=== PATIENT | female | born 2000 | race Caucasian/White ===

== ENCOUNTER 2021-03-04 08:43 | Outpatient (CLI) | payer BC, SELFPAY ==
--- NOTE | ~2021-03-04 | US_ITS ---
EXAMINATION: US right upper quadrant DATE: 03/04/2021 09:20 INDICATION: Elevated liver enzymes TECHNIQUE: Multiple grayscale and Doppler ultrasound images of the abdomen were obtained. COMPARISON: None available FINDINGS: Bowel gas obscures visualization of the pancreas. The visualized portions of the pancreas a re unremarkable. The liver demonstrates increased echogenicity, heterogenous echotexture, and decreas ed through transmission. No surface nodularity. Normal hepatopetal flow in the main portal vein. The gallbladder is normal with no abnormal wall thickening, pericholecystic fluid or stones. The normal c ommon bile duct measures 3 mm. There was no sonographic Mcclain sign. IMPRESSION: 1. Diffuse hepatic steatosis. Reviewed, dictated and finalized at location B.
--- NOTE | ~2021-03-04 | US_ITS ---
EXAMINATION: US thyroid EXAM DATE: 03/04/2021 09:20 INDICATION: Elevated liver enzymes level, dysphagia . TECHNIQUE: Multiple grayscale and Doppler images of the thyroid were obtained (by a technologist who performed the scan) and subsequently reviewed. Individual nodules and recommendations may be reporte d in accordance with TI-RADS system as designated by the 2017 ACR White Paper TI-RADS committee. The re is no prior study for comparison. FINDINGS: Right there are lobe measures 4.0 x 1.5 x 1.3 cm, the left measuring 4.8 x 1.7 x 1.5 cm. Mildly diffu sely heterogeneous thyroid echogenicity without any focal nodule identified. Dimensions are within no rmal size limits. IMPRESSION: 1. Unremarkable thyroid ultrasound exam. Reviewed, dictated and finalized at location A.
== END 2021-03-04 08:44 | disposition home or self-care (01) ==
PROVIDERS: PCP Internal Medicine Endocrinology, Diabetes & Metabolism; Visit Provider Nurse Practitioner Family
DX: R74.8 Abnormal levels of other serum enzymes (principal); K76.0 Fatty (change of) liver, not elsewhere classified
CPT/HCPCS: 76536; 76705

== ENCOUNTER 2021-04-04 07:48 | Outpatient (CLI) | payer BC, SELFPAY ==
--- NOTE | 2021-04-27 14:59 | WPDHOMESLEEP ---
Sleep Study - Home Unattended Date of Study: 04/04/21 Ordering Provider: Priti Guerin MD Interpreting Provider: Priti Guerin MD Home Sleep Study Type: Apnea Link Air Height: 1.65 m Weight: 122.47 kg Body Mass Index: 44.9 Neck Circumference (inches): 16.5 Beryl: 7 Reason for Sleep Study Hypersomnolence Sleep History Karie Maria is a 20 year old female with complaints of excessive daytime sleepiness and daytime fatigue. She rarely Awakens from sleep feeling short of breath. She occasionally awakens at night with heartburn, belching or coughing. She constantly snores loudly. She occasionally has trouble sleeping with a cold. She rarely gasps for breath at night. She does not have breathing problems at night reported to her by others. She constantly sweats excessively at night and frequently notices her heart pounding or beating irregularly at night. She frequently falls asleep during the day, rarely involuntarily and never falls asleep while driving. She occasionally has loss of muscle tone with strong emotion. She constantly has daytime difficulties due to excessive sleepiness. She frequently feels paralyzed on waking or falling asleep. She frequently has vivid dreamlike scenes upon awakening or falling asleep. She is not afraid to go to sleep. She frequently has nightmares. She does not remember dreams. She constantly has racing thoughts. She frequently feels sad, depressed and anxious. She frequently has muscular tension. She frequently notices parts of her body jerking. She occasionally kicks at night, frequently has crawling and aching feelings in her legs. She rarely has any kind of leg pain at night. She frequently has morning jaw pain, occasionally grinds her teeth during sleep. She constantly is bothered by pain during the day. She occasionally is awakened by pain at night. She frequently wakes up feeling stiff in the morning, constantly wakes up with sore achy muscles and pain in the spine. She has fatigue, headaches, dizziness, memory problems, concentration difficulties, and insomnia. She is always tired. Normal bedtime 9 pm, Sometimes it takes hours to fall asleep without medications. She typically wakes 3-5 times at night. She may be hungry during the night and gets a snack. She will try to go back to sleep. She wakes the morning at 6:00 a.m.. She takes naps in the afternoon or evening. A short nap is not refreshing. She is drowsy for 3 hours after waking. She feels better in the morning compared to other times of day. Habits: never smoked tobacco. Caffeine 1-2 sodas a day. Alcohol more than 1 a day. Recreational marijuana use. [facility] Past Medical History Medical History (Updated 04/28/21 @ 16:44 by Priti Guerin MD) Anxiety Depression Headache Hypothyroidism Mixed hyperlipidemia Polycystic ovary syndrome Pre-diabetes Social History Social History (Updated 04/28/21 @ 16:45 by Priti Guerin MD) Smoking status: Never smoker Alcohol intake: current Substance use: current Substance use type: marijuana Medications Home Medications Medication Instructions Recorded Confirmed Type famotidine [Pepcid] 20 mg PO BID #14 tablet 04/05/21 Rx loratadine [Claritin] 10 mg PO DAILY PRN #10 tablet 04/05/21 Rx prednisone 20 mg PO BID 4 Days #8 tablet 04/05/21 Rx Sleep Procedure This test was performed using 4 channel monitoring including respiratory effort channel, snoring channel, heart rate channel, and oxygen saturation channel. This study was scored using [facility] guidelines. Sleep Architecture Not applicable for home sleep test. Respiratory Analysis Recording duration 9 hours 11 minutes. Evaluation duration 8 hours 59 minutes. The apnea-hypopnea index is 14. There are 38 apneas. There were 9 obstructive apneas, 29% of the total, 29 central apneas which is 76% of the total number of apneas. There were 83 hypopneas. No evidence of Alejandro-Baum respira
[2021-04-28 16:40] VITALS: BMI 44.9
== END 2021-04-05 11:57 | disposition home or self-care (01) ==
LOC: ANHCSM 07:51
PROVIDERS: PCP Internal Medicine Endocrinology, Diabetes & Metabolism; Visit Provider Internal Medicine Critical Care Medicine
DX: G47.33 Obstructive sleep apnea (adult) (pediatric) (principal)
CPT/HCPCS: 95806

== ENCOUNTER 2021-04-05 18:06 | Emergency (ER) | payer BC, SELFPAY ==
[2021-04-05 18:16] VITALS: BP 137/91; PULSE 100; RESP 18; TEMP 37.1; O2SAT 98
[2021-04-05 19:28] VITALS: TEMP 36.7
[2021-04-05 19:28] LABS: Glucose Point of Care 101 mg/dl (65-105)
--- NOTE | 2021-04-05 19:34 | ED.GENADULT ---
HPI - General Adult General Chief complaint: Skin/Abscess/Foreign Body Stated complaint: Rash/sent from urgent care Time Seen by Provider: 04/05/21 18:51 Source: patient, family and RN notes reviewed Mode of arrival: ambulatory Limitations: no limitations History of Present Illness HPI narrative: Patient is a 20-year-old female who presents to emergency department for evaluation of rash around the neck patient notes on Sunday she received her second COVID-19 vaccine Sunday she woke with rash about the neck with itching patient denies similar occurrence or any other known allergic exposures or contacts. 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 Patient notes fatigue. Patient denies vomiting diarrhea URI symptoms or other complaints presents in no distress Related Data Allergies Allergy/AdvReac Type Severity Reaction Status Date / Time acetaminophen [From Percocet] Allergy Rash Verified 04/05/21 18:49 oxycodone [From Percocet] Allergy Rash Verified 04/05/21 18:49 levothyroxine AdvReac Nausea and Verified 04/05/21 18:50 Vomiting Review of Systems Review of Systems: All systems reviewed & are unremarkable except as noted in HPI and below PMFSH Past Medical History Medical History Anxiety Depression Social History Social History (Updated 04/05/21 @ 19:48 by Joey Granda PA-C) Smoking status: Never smoker Exam Narrative: GENERAL: Well-appearing, well-nourished, and in no acute distress. HEAD: Normocephalic, atraumatic. EYES: PERRLA and EOMI. ENT: Nares clear, no rhinorrhea or epistaxis. Mucous membranes moist. Oropharynx without tonsillar hypertrophy exudate or other lesions. No angioedema in the oropharynx NECK: Supple. No adenopathy or masses. No stridor CHEST: Clear to auscultation. No respiratory distress. No wheezes rales or rhonchi HEART: Regular rate and rhythm. No murmur heard. EXTREMITIES: Normal range of motion. No edema. SKIN: Warm, dry, patient with macular rash to the left side of the neck a few splotchy areas on the right. Injection site to the left deltoid without erythema or swelling or rash NEURO: No focal deficits. Alert and oriented x3. PSYCH: Normal mood and affect. Course Course Emergency Course: Patient presented with rash which appears to be allergic in nature she is nontoxic-appearing no distress afebrile without URI symptoms or other concerning findings patient will be discharged and managed as a contact dermatitis allergic reaction. She has been given reasons to return and advised to follow with primary care ABCs and vital signs intact and stable Vital Signs Vital signs: Vital Signs Temperature 98.7 F 04/05/21 18:16 Pulse Rate 100 04/05/21 18:16 Respiratory Rate 18 04/05/21 18:16 Blood Pressure 137/91 H 04/05/21 18:16 Pulse Oximetry 98 04/05/21 18:16 Temperature 98.1 F 04/05/21 19:28 Pulse Rate 100 04/05/21 18:16 Respiratory Rate 18 04/05/21 18:16 Blood Pressure 137/91 H 04/05/21 18:16 Pulse Oximetry 98 04/05/21 18:16 Medical Decision Making MDM Narrative Medical decision making narrative: Patient presented with rash nonspecific will be discharged with outpatient follow-up provided with reasons to return she will be managed with antihistamines and steroids in the interim no concerning findings otherwise on evaluation Vital Signs Vital Signs: Vital Signs Temperature 98.7 F 04/05/21 18:16 Pulse Rate 100 04/05/21 18:16 Respiratory Rate 18 04/05/21 18:16 Blood Pressure 137/91 H 04/05/21 18:16 Pulse Oximetry 98 04/05/21 18:16 Temperature 98.1 F 04/05/21 19:28 Pulse Rate 100 04/05/21 18:16 Respiratory Rate 18 04/05/21 18:16 Blood Pressure 137/91 H 04/05/21 18:16 Pulse Oximetry 98 04/05/21 18:16 Lab Data Labs: Lab Results 04/05/21 Range/Units
[2021-04-05] MEDS: hydrOXYzine HCL 25 MG TABLET PO (20:00)
[2021-04-05] MEDS: FAMOTIDINE 20 MG TABLET PO (20:00)
== END 2021-04-05 20:16 | disposition home or self-care (01) ==
PROVIDERS: Emergency Provider Emergency Medicine; PCP Physician Assistant
DX: R21 Rash and other nonspecific skin eruption (principal)
CPT/HCPCS: 82948; 99283; A9270

== ENCOUNTER 2021-04-27 12:08 | Outpatient (CLI) | payer BC, SELFPAY ==
--- NOTE | ~2021-04-27 | MR_ITS ---
EXAMINATION: MR brain/brain stem wo con EXAM DATE: 04/27/2021 14:43 INDICATION: Seizure disorder. TECHNIQUE: Magnetic resonance imaging (MRI) of the brain/brain stem obtained without contrast. Lali al T1, axial diffusion, gradient echo (T2*), T1, T2, FLAIR sequences obtained. Seizure protocol was utilized including high-resolution coronal images through the hippocampi. There are no prior studies for comparison. FINDINGS: The hippocampi are symmetric and are without signal abnormality identified. There are no g ray matter heterotopias identified or evidence of cortical dysplasia. There are no areas of restricte d diffusion to suggest acute infarction. There is no acute hemorrhage seen on the T2*, a hemosiderin sensitive sequence. No intraparenchymal brain mass. The ventricles are normal in size. There are n o extra-axial collections. Flow voids are seen in the cerebral arteries on the T2-weighted sequences consistent with their expected patency. The orbits are unremarkable. Soft tissue is unremarkable. IMPRESSION: Unremarkable brain MRI examination. Reviewed, dictated and finalized at location B.
== END 2021-04-27 12:09 | disposition home or self-care (01) ==
PROVIDERS: PCP Physician Assistant; Visit Provider Physician Assistant
DX: G40.909 Epilepsy, unspecified, not intractable, without status epilepticus (principal)
CPT/HCPCS: 70551

== ENCOUNTER 2021-11-22 14:23 | Outpatient (CLI) | payer BC, SELFPAY ==
--- NOTE | ~2021-11-22 | XR_ITS ---
EXAM: XR hip RT min 2V HISTORY: CHRONIC RIGHT HIP PAIN COMPARISON: None available FINDINGS: Normal mineralization. No fracture or dislocation. No lytic or blastic lesion. Joint space s maintained. No erosion or periosteal change. Soft tissues within normal limits. IMPRESSION: Normal right hip radiograph findings. Reviewed, dictated and finalized at location K.
--- NOTE | ~2021-11-22 | XR_ITS ---
EXAM: XR sacroiliac joints min 3V HISTORY: CHRONIC SI PAIN COMPARISON: None available FINDINGS: Normal mineralization. No fracture or dislocation. No lytic or blastic lesion. Narrowing a nd subchondral sclerosis in the inferior portion of the right SI joint. No erosion or periosteal mcgill ge. Soft tissues within normal limits. IMPRESSION: Right sacroiliitis. Reviewed, dictated and finalized at location K. IMPRESSION: Right sacroiliitis.
--- NOTE | ~2021-11-22 | MR_ITS ---
EXAMINATION: MR hip RT wo con DATE: 11/22/2021 16:17 INDICATION: Chronic right hip pain. TECHNIQUE: Magnetic resonance imaging (MRI) of the right hip was performed without intravenous contra st. Sequences included axial and coronal PD-weighted FS FSE and axial T1-weighted FSE of the pelvis. Sequences of the hip included 2D FIESTA, T1-weighted fast GRE, and axial, coronal, and sagittal PD-we ighted FS FSE. COMPARISON: Right hip radiographs 11/22/2021 FINDINGS: Bones/cartilage: Bone alignment is normal. No fracture. The femoral head/neck morphologies are normal. The right hip j oint cartilage is normal. Labrum: The right acetabular labrum is normal. Fluid: There is no hip joint effusion. There is mild bilateral trochanteric bursitis. Soft tissues: There is mild tendinopathy of the hamstring origins. The iliopsoas tendons are normal. The gluteus mi nimus and gluteus medius tendons are normal. The musculature is normal. IMPRESSION: 1. Mild bilateral trochanteric bursitis. Reviewed, dictated and finalized at location A.
--- NOTE | ~2021-11-22 | XR_ITS ---
EXAM: XR lumbar spine min 4V HISTORY: WEAKNESS OF JESSI;CHRONIC JESSI LBP W/O SCIATICA COMPARISON: None available FINDINGS: There are 6 nonrib-bearing lumbar-type vertebral bodies. Normal vertebral body heights. Mi ld disc space narrowing at L6-S1. Mild facet narrowing and sclerosis on the left at L5-6. Mild facet sclerosis at L5-6 and L6-S1 on the right. IMPRESSION: 6 lumbar-type vertebral bodies. Mild degenerative disease at L6-S1. Lower lumbar facet arthropathy. Reviewed, dictated and finalized at location K. IMPRESSION: 6 lumbar-type vertebral bodies. Mild degenerative disease at L6-S1. Lower lumba r facet arthropathy.
--- NOTE | ~2021-11-22 | US_ITS ---
US breast LT limited DATE: 11/22/2021 15:05 INDICATION: Left breast contusion, lump; patient noticed the lump is diminishing in size TECHNIQUE: High-resolution limited left breast ultrasound examination at the area of clinical complai nt of lump at 6:00 5 cm from the nipple, in the area of a bruise. Within the subcutaneous adipose tissue is an elongated parallel circumscribed lowly sonolucent area w ithout an up to 1 mm in depth and 12 mm width. This is likely a small hematoma or seroma. No suspicious mass or shadowing is noted. COMPARISON: None FINDINGS: High-resolution limited left breast ultrasound examination at the area of clinical complain t of lump at 6:00 5 cm from the nipple, in the area of a bruise, within the subcutaneous adipose tiss ue, is an elongated parallel circumscribed lowly sonolucent area without an up to 1 mm in depth and 1 2 mm width. This is likely a small hematoma or seroma. No suspicious mass or shadowing is noted. IMPRESSION: BI-RADS Category 2: Benign Reviewed, dictated and finalized at Location A. Reviewed, dictated and finalized at location A. IMPRESSION: BI-RADS Category 2: Benign
== END 2021-11-22 14:24 | disposition home or self-care (01) ==
PROVIDERS: PCP Internal Medicine Endocrinology, Diabetes & Metabolism; Referring Provider Physician Assistant; Visit Provider Physician Assistant
DX: G89.29 Other chronic pain (principal); M70.61 Trochanteric bursitis, right hip; M53.3 Sacrococcygeal disorders, not elsewhere classified; M51.37 Other intervertebral disc degeneration, lumbosacral region; S20.02XA Contusion of left breast, initial encounter; X58.XXXA Exposure to other specified factors, initial encounter; R29.898 Other symptoms and signs involving the musculoskeletal system; M54.50 Low back pain, unspecified; M25.561 Pain in right knee
CPT/HCPCS: 72110; 72202; 73502; 73721; 76642

== ENCOUNTER 2022-01-07 09:08 | Outpatient (CLI) | payer BC, SELFPAY ==
--- NOTE | ~2022-01-07 | MR_ITS ---
EXAMINATION: MR sacroiliac jts wo/w con DATE: 01/07/2022 10:42 INDICATION: Sacroiliitis. Sacroiliac joint pain. TECHNIQUE: Magnetic resonance imaging (MRI) of the sacroiliac joints was performed without and with 2 0 mL MultiHance intravenous contrast. COMPARISON: Right hip MRI 11/22/2021, sacroiliac joint radiographs 11/11/2021 FINDINGS: Bone alignment is normal. No fracture. There is osteoarthritis of the sacroiliac joints wit h osteophytes and right-sided joint space narrowing. No erosions. No evidence of inflammatory arthrop athy. There is a 4.2 cm cyst in right ovary, likely a follicular cyst. IMPRESSION: 1. Moderate osteoarthritis of right sacroiliac joint and mild osteoarthritis of left sacroiliac joint . No evidence of inflammatory arthropathy. Reviewed, dictated and finalized at location A. IMPRESSION: 1. Moderate osteoarthritis of right sacroiliac joint and mild osteoarthritis of left sacroiliac joint. No evidence of inflammatory arthropathy.
[2022-01-07 09:57] LABS: Estimated Glomerular Filt Rate > 60
== END 2022-01-07 09:09 | disposition home or self-care (01) ==
LOC: ANHIMG 09:10
PROVIDERS: PCP Internal Medicine Endocrinology, Diabetes & Metabolism; Visit Provider Physician Assistant
DX: M46.1 Sacroiliitis, not elsewhere classified (principal); M85.88 Other specified disorders of bone density and structure, other site
CPT/HCPCS: 72197; A9577

== ENCOUNTER → 2022-02-23 13:31 | Outpatient (CLI) | payer BC, SELFPAY ==
--- NOTE | ~2022-02-23 | US_ITS ---
EXAMINATION: US transvaginal DATE: 02/23/2022 13:57 INDICATION: Right ovarian cyst. Comparison:MRI dated 01/08/20202015 TECHNIQUE: Multiple transabdominal and endovaginal sonographic images of the pelvis performed. FINDINGS: The uterus measures 7.2 x 3.6 x 3.9 cm. The endometrial complex measures 4 mm. The right ovary measures 2.7 x 2 x 1.9 cm and the left ovary measures 2.9 x 2 x 2.6 cm. There is a le ft ovarian cyst measuring 2.1 cm. There are small follicles in each ovary. Normal doppler signal in b oth ovaries. There is no free fluid in the pelvis. There are no abnormal masses seen on either side. IMPRESSION: 1. Left ovarian cyst measuring 2.1 cm. Reviewed, dictated and finalized at location A.
== END ==
PROVIDERS: PCP Physician Assistant; Visit Provider Obstetrics & Gynecology Gynecology
DX: N83.202 Unspecified ovarian cyst, left side (principal)
CPT/HCPCS: 76830

== ENCOUNTER 2022-10-20 12:52 | Outpatient (CLI) | payer BC, SELFPAY ==
--- NOTE | ~2022-10-20 | XR_ITS ---
Clinical Indication: Chest pain PA and lateral views of the chest: Comparison: None Findings: The lungs are clear, without evidence of focal consolidation or pleural effusion. Cardiome diastinal silhouette is within normal limits. Bones and soft tissues are unremarkable. Impression: Normal chest. Reviewed, dictated and finalized at [facility]. 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
== END 2022-10-20 12:53 | disposition home or self-care (01) ==
PROVIDERS: PCP Nurse Practitioner Family; Visit Provider Nurse Practitioner Family
DX: R07.89 Other chest pain (principal); G89.29 Other chronic pain
CPT/HCPCS: 71046

== ENCOUNTER 2022-10-29 13:39 | Emergency (ER) | payer BC, SELFPAY ==
--- NOTE | ~2022-10-29 | XR_ITS ---
XR ankle LT min 3V 10/29/2022 14:06 INDICATION: Left ankle pain after recent fall PROCEDURE: 4 views left ankle COMPARISON: No prior studies for comparison. FINDINGS: Fracture, dislocation or subluxation is not identified. There is mild lateral soft tissue s welling. No foreign bodies are identified. IMPRESSION: 1: NO ACUTE BONE OR JOINT ABNORMALITY IDENTIFIED. Reviewed, dictated and finalized at location A.
[2022-10-29 14:00] VITALS: BP 138/94; PULSE 126; RESP 16; TEMP 36.1; O2SAT 98
--- NOTE | 2022-10-29 14:24 | ED.LOWEXIN ---
HPI - Extremity Injury (Lower) General Chief Complaint: Extremity Injury, Lower Stated Complaint: Left Foot Pain Time Seen by Provider: 10/29/22 14:25 Source: patient, RN notes reviewed and old records reviewed Mode of arrival: ambulatory Limitations: no limitations History of Present Illness HPI Narrative: 22-year-old female presents to [facility] with complaints of left lateral ankle pain since Sunday. Patient states that she was walking when her ankle rolled in words and she landed on it. Was evaluated at a local ER. Patient reports that it is not any better. Positive pedal pulse. Sensation intact. Related Data Home Medications Medication Instructions Recorded Confirmed aripiprazole 5 mg tablet 5 mg PO DIRECTED 10/29/22 10/29/22 clomipramine 75 mg capsule 150 mg PO QHS 10/29/22 10/29/22 cyanocobalamin (vitamin B-12) 1,000 mcg IM DIRECTED 10/29/22 10/29/22 1,000 mcg/mL injection solution dextroamphetamine-amphetamine ER 30 mg PO DAILY 10/29/22 10/29/22 30 mg 24hr capsule,extend release dicyclomine 20 mg tablet 20 mg PO BID PRN Pain 10/29/22 10/29/22 drospirenone 3 mg-ethinyl 1 tablet PO DAILY 10/29/22 10/29/22 estradiol 0.03 mg tablet ergocalciferol (vitamin D2) 1,250 1,250 mcg PO DIRECTED 10/29/22 10/29/22 mcg (50,000 unit) capsule ferrous sulfate 325 mg (65 mg 325 mg PO DAILY 10/29/22 10/29/22 iron) tablet fluoxetine 40 mg capsule 40 mg PO DAILY 10/29/22 10/29/22 gabapentin 300 mg capsule 300 mg PO DIRECTED 10/29/22 10/29/22 ibuprofen 800 mg tablet 800 mg PO DIRECTED 10/29/22 10/29/22 metformin 1,000 mg tablet 500 mg PO DIRECTED 10/29/22 10/29/22 metoprolol tartrate 50 mg tablet 50 mg PO DIRECTED 10/29/22 10/29/22 rosuvastatin 10 mg tablet 10 mg PO DAILY 10/29/22 10/29/22 trazodone 100 mg tablet 100 mg PO DIRECTED 10/29/22 10/29/22 Allergies Allergy/AdvReac Type Severity Reaction Status Date / Time acetaminophen [From Percocet] Allergy Rash Verified 10/29/22 13:47 Latex, Natural Rubber Allergy Rash Verified 10/29/22 14:16 oxycodone [From Percocet] Allergy Rash Verified 10/29/22 13:47 Review of Systems Review of Systems: All systems reviewed & are unremarkable except as noted in HPI and below Constitutional: Constitutional: Reports no additional constitutional complaints Eyes: Eyes: Reports no additional eye complaints ENT: Reports system reviewed and no additional complaints, except as documented Cardiovascular: Cardiovascular: Reports no additional cardiovascular complaints, Denies chest pain and Denies dyspnea Respiratory: Respiratory: Reports no additional respiratory complaints, Denies chest congestion, Denies cough and Denies dyspnea Gastrointestinal: Gastrointestinal: Reports no additional gastrointestinal complaints, Denies abdominal pain, Denies nausea and Denies vomiting Musculoskeletal: Musculoskeletal: Reports as per HPI and Reports arthralgias (Left lateral ankle) Integumentary/Breasts: Skin/Breast: Reports system reviewed and no additional complaints, except as docu Neurologic: Reports system reviewed and no additional complaints, except as documented Psychiatric: Psychiatric: Reports no additional psychiatric complaints Allergic/Immunologic: Allergic/Immunologic: Reports no additional allergic/immunologic complaints [facility] Past Medical History Medical History Anxiety Depression Headache Hypothyroidism Mixed hyperlipidemia Polycystic ovary syndrome Pre-diabetes Social History Social History Smoking status: Never smoker Alcohol intake: current Substance use: current Substance use type: marijuana Comments At the time of my signature, I reviewed and agree with the nursing past medical, surgical, social, and family history. There is no relevant family history pertinent to the patient complaint. Exam Const: General: coop
== END 2022-10-29 14:40 | disposition home or self-care (01) ==
PROVIDERS: Emergency Provider Nurse Practitioner; PCP Nurse Practitioner Family
DX: S93.402A Sprain of unspecified ligament of left ankle, initial encounter (principal); F41.9 Anxiety disorder, unspecified; F32.A Depression, unspecified; E03.9 Hypothyroidism, unspecified; E78.5 Hyperlipidemia, unspecified; Z79.01 Long term (current) use of anticoagulants; Z79.84 Long term (current) use of oral hypoglycemic drugs; X50.0XXA Overexertion from strenuous movement or load, initial encounter
CPT/HCPCS: 73610; 99213; G0463

== ENCOUNTER 2023-01-19 14:49 | Outpatient (CLI) | payer BC, SELFPAY ==
--- NOTE | ~2023-01-19 | US_ITS ---
EXAMINATION: US transvaginal DATE: 01/19/2023 15:27 INDICATION: Pelvic pain TECHNIQUE: Multiple endovaginal sonographic images of the pelvis were obtained. COMPARISON: 02/23/2022 FINDINGS: The uterus measures 7.8 x 3.7 x 4.2 cm. The endometrial complex measures 9 mm. The right ov estiven measures 2.6 x 1.6 x 2.1 cm. The left ovary measures 5.3 x 3.5 x 3.3 cm and contains a 2.7 cm cys t. There is normal vascular flow in the ovaries. There is no free fluid in the pelvis. IMPRESSION: 1. No sonographic correlate for the patient's symptoms. Reviewed, dictated and finalized at location F.
== END 2023-01-19 14:50 ==
PROVIDERS: PCP Nurse Practitioner; Visit Provider Nurse Practitioner
DX: R10.2 Pelvic and perineal pain (principal)
CPT/HCPCS: 76830

== ENCOUNTER 2023-11-14 14:57 | Outpatient (CLI) | payer BC, SELFPAY ==
--- NOTE | ~2023-11-14 | XR_ITS ---
XR chest 2V DATE: 11/14/2023 15:12 INDICATION: Restless legs TECHNIQUE: PA and lateral views COMPARISON: None FINDINGS: Normal heart size. No hilar or mediastinal enlargement. No pulmonary infiltrate or consolid ation, pleural effusion or pulmonary vascular congestion or pneumothorax. Included skeletal structure s are unremarkable. IMPRESSION: Negative Reviewed, dictated and finalized at location B. IMPRESSION: Negative
== END 2023-11-14 14:58 | disposition home or self-care (01) ==
PROVIDERS: PCP Nurse Practitioner; Visit Provider Internal Medicine Pulmonary Disease
DX: G47.33 Obstructive sleep apnea (adult) (pediatric) (principal); G25.81 Restless legs syndrome; F45.8 Other somatoform disorders; F41.9 Anxiety disorder, unspecified; R53.83 Other fatigue; R06.02 Shortness of breath; F51.04 Psychophysiologic insomnia
CPT/HCPCS: 71046

== ENCOUNTER 2024-01-28 18:24 | Emergency (ER) | payer BC, SELFPAY ==
--- NOTE | ~2024-01-28 | XR_ITS ---
EXAM: XR ankle RT min 3V DATE: 01/28/2024 20:06 HISTORY: pain; injury . COMPARISON: None available. FINDINGS: Normal mineralization. No fracture or dislocation. No lytic or blastic lesion. Joint space s are maintained. No erosion or periosteal change. Lateral and anterior ankle soft tissue swelling. IMPRESSION: No acute osseous finding in the right ankle. Reviewed, dictated and finalized at location K.
[2024-01-28 18:32] VITALS: BP 128/75; PULSE 94; RESP 18; TEMP 36.6; O2SAT 98
--- NOTE | 2024-01-28 19:39 | ED.GENADULT ---
HPI - General Adult General Chief complaint: Extremity Injury, Lower Stated complaint: right ankle injury Time Seen by Provider: 01/28/24 19:40 Source: patient, RN notes reviewed and old records reviewed Mode of arrival: ambulatory Limitations: no limitations History of Present Illness HPI narrative: 23-year-old female to [facility] for complaint of right ankle and right foot pain after falling down 3 steps at home. Patient denies hitting head during full. Patient reports prior sprains and strains to same joint. Patient denies numbness, tingling, pain radiating into right lower extremity patient has not attempted to treat at home with [id number] medications. Patient in no acute distress. Related Data Home Medications Medication Instructions Recorded Confirmed aripiprazole 5 mg tablet 5 mg PO DIRECTED 10/29/22 10/29/22 clomipramine 75 mg capsule 150 mg PO QHS 10/29/22 10/29/22 cyanocobalamin (vitamin B-12) 1,000 mcg IM DIRECTED 10/29/22 10/29/22 1,000 mcg/mL injection solution dextroamphetamine-amphetamine ER 30 mg PO DAILY 10/29/22 10/29/22 30 mg 24hr capsule,extend release dicyclomine 20 mg tablet 20 mg PO BID PRN Pain 10/29/22 10/29/22 drospirenone 3 mg-ethinyl 1 tablet PO DAILY 10/29/22 10/29/22 estradiol 0.03 mg tablet ergocalciferol (vitamin D2) 1,250 1,250 mcg PO DIRECTED 10/29/22 10/29/22 mcg (50,000 unit) capsule ferrous sulfate 325 mg (65 mg 325 mg PO DAILY 10/29/22 10/29/22 iron) tablet fluoxetine 40 mg capsule 40 mg PO DAILY 10/29/22 10/29/22 gabapentin 300 mg capsule 300 mg PO DIRECTED 10/29/22 10/29/22 ibuprofen 800 mg tablet 800 mg PO DIRECTED 10/29/22 10/29/22 metformin 1,000 mg tablet 500 mg PO DIRECTED 10/29/22 10/29/22 metoprolol tartrate 50 mg tablet 50 mg PO DIRECTED 10/29/22 10/29/22 rosuvastatin 10 mg tablet 10 mg PO DAILY 10/29/22 10/29/22 trazodone 100 mg tablet 100 mg PO DIRECTED 10/29/22 10/29/22 Allergies Allergy/AdvReac Type Severity Reaction Status Date / Time acetaminophen [From Percocet] Allergy Rash Verified 01/28/24 20:03 Latex, Natural Rubber Allergy Rash Verified 01/28/24 20:03 oxycodone [From Percocet] Allergy Rash Verified 01/28/24 20:03 Review of Systems Review of Systems: All systems reviewed & are unremarkable except as noted in HPI and below Constitutional: Constitutional: Reports no additional constitutional complaints Eyes: Eyes: Reports no additional eye complaints ENT: Reports system reviewed and no additional complaints, except as documented Cardiovascular: Cardiovascular: Reports no additional cardiovascular complaints, Denies chest pain and Denies dyspnea Respiratory: Respiratory: Reports no additional respiratory complaints, Denies cough and Denies dyspnea Musculoskeletal: Musculoskeletal: Reports as per HPI, Reports arthralgias ( right ankle) and Reports joint swelling ( right ankle) Neurologic: Reports system reviewed and no additional complaints, except as documented Psychiatric: Psychiatric: Reports no additional psychiatric complaints PMFSH Past Medical History Medical History Anxiety Depression Headache Hypothyroidism Mixed hyperlipidemia Polycystic ovary syndrome Pre-diabetes Social History Social History Smoking status: Never smoker Alcohol intake: current Substance use: current Substance use type: marijuana Comments At the time of my signature, I reviewed and agree with the nursing past medical, surgical, social, and family history. There is no relevant family history pertinent to the patient complaint. Exam Const: General: cooperative, healthy appearing, comfortable, no acute distress, alert and well nourished Nutritional Appearance: well nourished Orientation/consciousness: patient oriented x3 Limitations: no limitations HENMT: Head: normal to inspection Ears:
== END 2024-01-28 20:45 | disposition home or self-care (01) ==
PROVIDERS: Emergency Provider Nurse Practitioner Family
DX: S93.401A Sprain of unspecified ligament of right ankle, initial encounter (principal); S96.911A Strain of unspecified muscle and tendon at ankle and foot level, right foot, initial encounter; W10.9XXA Fall (on) (from) unspecified stairs and steps, initial encounter
CPT/HCPCS: 73610; 99213; G0463

== ENCOUNTER 2024-04-06 21:11 | Emergency (ER) | payer BC, SELFPAY ==
--- NOTE | ~2024-04-06 | XR_ITS ---
AP view of the pelvis and AP and lateral views of the right hip Clinical history: Pain Findings: No acute fracture or dislocation is seen. Osseous alignment is anatomic. Bilateral hip and SI joint spaces are preserved. Soft tissues are unremarkable. Impression: No significant abnormality is seen. Reviewed, dictated and finalized at [facility]. Impression: No significant abnormality is seen.
--- NOTE | ~2024-04-06 | XR_ITS ---
Lumbosacral Spine: AP and lateral views Clinical History: Pain Findings: The normal lordotic curve is maintained. The vertebral bodies and posterior elements are i ntact. The intervertebral disc spaces are preserved. The sacroiliac joints are normally outlined. Impression: No significant abnormality. Reviewed, dictated and finalized at [facility] [place]. Impression: No significant abnormality.
--- NOTE | 2024-04-06 22:12 | ED.LOWEXIN ---
HPI - Extremity Injury (Lower) General Chief Complaint: Extremity Injury, Lower Stated Complaint: R hip pain Time Seen by Provider: 04/06/24 21:54 Source: patient Mode of arrival: ambulatory (with cane) Limitations: no limitations History of Present Illness HPI Narrative: This is a 23 year old female that presents to the ER for right sided hip/low back pain. Reports history of chronic hip pain. Reports they has a known Labrum tear. Was unable to have surgery this summer as their BMI is too high. Reports they was moving apartments this week and the pain is worse than usual. Denies decreased ROM or numbness. Related Data Home Medications Medication Instructions Recorded Confirmed aripiprazole 5 mg tablet 5 mg PO DIRECTED 10/29/22 10/29/22 clomipramine 75 mg capsule 150 mg PO QHS 10/29/22 10/29/22 cyanocobalamin (vitamin B-12) 1,000 mcg IM DIRECTED 10/29/22 10/29/22 1,000 mcg/mL injection solution dextroamphetamine-amphetamine ER 30 mg PO DAILY 10/29/22 10/29/22 30 mg 24hr capsule,extend release dicyclomine 20 mg tablet 20 mg PO BID PRN Pain 10/29/22 10/29/22 drospirenone 3 mg-ethinyl 1 tablet PO DAILY 10/29/22 10/29/22 estradiol 0.03 mg tablet ergocalciferol (vitamin D2) 1,250 1,250 mcg PO DIRECTED 10/29/22 10/29/22 mcg (50,000 unit) capsule ferrous sulfate 325 mg (65 mg 325 mg PO DAILY 10/29/22 10/29/22 iron) tablet fluoxetine 40 mg capsule 40 mg PO DAILY 10/29/22 10/29/22 gabapentin 300 mg capsule 300 mg PO DIRECTED 10/29/22 10/29/22 ibuprofen 800 mg tablet 800 mg PO DIRECTED 10/29/22 10/29/22 metformin 1,000 mg tablet 500 mg PO DIRECTED 10/29/22 10/29/22 metoprolol tartrate 50 mg tablet 50 mg PO DIRECTED 10/29/22 10/29/22 rosuvastatin 10 mg tablet 10 mg PO DAILY 10/29/22 10/29/22 trazodone 100 mg tablet 100 mg PO DIRECTED 10/29/22 10/29/22 Allergies Allergy/AdvReac Type Severity Reaction Status Date / Time acetaminophen [From Percocet] Allergy Rash Verified 01/28/24 20:03 Latex, Natural Rubber Allergy Rash Verified 01/28/24 20:03 oxycodone [From Percocet] Allergy Rash Verified 01/28/24 20:03 Review of Systems Review of Systems: CONSTITUTIONAL: Denies fever MUSCULOSKELETAL: Reports joint pain, and myalgia. NEUROLOGIC: Denies numbness, or weakness. All systems reviewed & are unremarkable except as noted in HPI and below PMFSH Past Medical History Medical History Anxiety Depression Headache Hypothyroidism Mixed hyperlipidemia Polycystic ovary syndrome Pre-diabetes Social History Social History Smoking status: Never smoker Alcohol intake: current Substance use: current Substance use type: marijuana Exam Narrative: GENERAL: Well-appearing, well-nourished, and in no acute distress. HEAD: Normocephalic, atraumatic. EYES: EOMI. CHEST: Clear to auscultation. No respiratory distress. No wheezes rales or rhonchi HEART: Regular rate and rhythm. No murmur heard. Normal peripheral pulses. EXTREMITIES: Normal range of motion. No edema or erythema. Normal DP pulse. Normal sensation SKIN: Warm, dry, no rash. NEURO: No focal deficits. Alert and oriented x3. PSYCH: Normal mood and affect Course Course Emergency Course: Patient updated on workup and agrees with plan of care Vital Signs Vital signs: Vital Signs Temperature 98.7 F 04/06/24 23:40 Pulse Rate 98 04/06/24 23:40 Respiratory Rate 04/06/24 23:40 Blood Pressure 135/82 04/06/24 23:40 Pulse Oximetry 98 04/06/24 23:40 Temperature 98.7 F 04/06/24 23:40 Pulse Rate 98 04/06/24 23:40 Respiratory Rate 20 04/06/24 23:40 Blood Pressure 135/82 04/06/24 23:40 Pulse Oximetry 98 04/06/24 23:40 MDM - Extremity Injury (Lower) MDM Narrative Medical decision making narrative: patient presents to the emergency department for right hip pain. Repo
[2024-04-06] MEDS: ACETAMINOPHEN 500 MG TABLET 1000 MG PO (22:50)
[2024-04-06 22:51] LABS: BEDSIDEPREGUCG Negative
[2024-04-06] MEDS: KETOROLAC 30 MG/ML VIAL (*BKC) IM (22:55)
[2024-04-06 23:40] VITALS: BP 135/82; PULSE 98; RESP 20; TEMP 37.1; O2SAT 98
[2024-04-07 05:57] LABS: Glucose Point of Care 78 mg/dl (65-105)
== END 2024-04-07 00:55 | disposition home or self-care (01) ==
PROVIDERS: Emergency Provider Physician Assistant
DX: M54.41 Lumbago with sciatica, right side (principal); G89.29 Other chronic pain; M25.551 Pain in right hip; F41.9 Anxiety disorder, unspecified; F32.A Depression, unspecified; E03.9 Hypothyroidism, unspecified; E78.5 Hyperlipidemia, unspecified
CPT/HCPCS: 72100; 73502; 81025; 82948; 96372; 99284; A9270; J1885

== ENCOUNTER 2024-12-29 12:16 | Outpatient (CLI) | payer BC, SELFPAY ==
--- NOTE | ~2024-12-29 | US_ITS ---
EXAM: PELVIC ULTRASOUND HISTORY: Pelvic pain COMPARISON: 01/19/2023. FINDINGS: UTERUS: 6.7 x 3.4 x 3.4 cm. The uterus is anteverted and anteflexed. The endometrial complex measures 5.6 mm. Nabothian cyst within the cervix measuring 7.5 x 4 mm, unchanged from 2022. RIGHT OVARY: The right ovary is unremarkable in echogenicity and size measuring 3.7 x 1.6 x 2.4 cm. Dopplerable flow is identified. LEFT OVARY: The left ovary is unremarkable in echogenicity and size measuring 1.7 x 2.2 x 1.8 cm Dopplerable flow is identified. No free fluid is identified within the pelvis. IMPRESSION: Redemonstration of a subcentimeter nabothian cyst. Otherwise, unremarkable sonographic evaluation of the female pelvis, as detailed above. Reviewed, dictated and finalized at location A. IMPRESSION: Redemonstration of a subcentimeter nabothian cyst. Otherwise, unremarkable sonographic evaluation of the female pelvis, as detaile d above.
--- NOTE | ~2024-12-29 | US_ITS ---
US breast LT complete INDICATION: Breast pain TECHNIQUE: Dedicated complete left breast ultrasound including all 4 quadrants in the subareolar loca tion COMPARISON: Ultrasound dated 11/22/2021 FINDINGS: The left breast is/are composed of normal heterogeneous echotexture without focal solid or cystic mass. IMPRESSION: 1: Normal left breast ultrasound. BI-RADS CATEGORY 1 - NEGATIVE Reviewed, dictated and finalized at location B.
== END 2024-12-29 12:17 | disposition home or self-care (01) ==
PROVIDERS: PCP Nurse Practitioner; Visit Provider Nurse Practitioner
DX: R10.2 Pelvic and perineal pain (principal); N64.4 Mastodynia
CPT/HCPCS: 76641; 76830

== ENCOUNTER 2025-04-03 11:07 | Outpatient (CLI) | payer BC, MEDICAID, SELFPAY ==
--- NOTE | ~2025-04-03 | US_ITS ---
EXAMINATION: US transvaginal INDICATION: Pelvic pain Comparison:No prior studies for comparison. TECHNIQUE: Multiple endovaginal sonographic images of the pelvis performed. FINDINGS: The uterus measures 7.3 x 3.3 x 3.4 cm. There is a nabothian cyst measuring 9 mm. The endometrial complex measures 6 mm. The right ovary measures 1.4 x 0.8 x 1.3 cm and the left ovary measures 2.3 x 1.3 x 1.4 cm. There are small follicles in each ovary. Normal doppler signal in both ovaries. There is no free fluid in the pelvis. There are no abnormal masses seen on either side. IMPRESSION: 1. Unremarkable pelvic ultrasound. Reviewed, dictated and finalized at location O.
== END 2025-04-03 11:08 | disposition home or self-care (01) ==
LOC: MICIMG 11:09
PROVIDERS: PCP Nurse Practitioner; Visit Provider Nurse Practitioner
DX: N93.8 Other specified abnormal uterine and vaginal bleeding (principal)
CPT/HCPCS: 76830